=== PATIENT | female | born 1940 ===

== ENCOUNTER 2023-04-26 04:55 | Inpatient (IN) ==
[2023-04-26] MEDS ORDERED: ACETAMINOPHEN 325 MG TAB PO PRN (10:44)
[2023-04-26] MEDS ORDERED: MoRPHine SULFATE 2 MG/ML CARP IV PRN (10:44)
[2023-04-26] MEDS ORDERED: ONDANSETRON INJ 2 MG/ML 2 ML VIAL IV PRN ×2 (10:44→14:02)
[2023-04-26] MEDS ORDERED: MoRPHine SULFATE 4 MG/ML 1 ML CARP\\VIAL IV PRN (10:44)
--- NOTE | 2023-04-26 10:44 | History & Physical Report ---
Date of Service April 26, 2023 Assessment & Plan (1) Renal stone: Plan: 83yo female presenting from outside facility for right sided obstructing renal stone. Patient presently comfortable, no pain or nausea reported. Lab results from outside facility significant for bacteriuria -Admit to medical -Check BMP, CBC, UA -IVF with NSS at 80mL/hr x 1 liter -Morphine PRN pain -Zofran PRN nausea -Ceftriaxone 2gm IV daily -Urology consultation appreciated. Will keep patient NPO for possible intervention (2) Diabetes: Plan: Elevated blood sugar at outside facility. Patient is compliant with her med ications - she is on Levemir, Novolog and Victoza -Check BMP -Lantus 8u BID -Novolog sliding scale - goal blood sugars 110 - 140 -Continue Victoza (3) Hypothyroid: Plan: Patient compliant with her thyroid medications. -Check TSH -Continue Synthroid 50 mcg po daily (4) Hyperlipidemia: Plan: Chronic. Stable -Continue Atorvastatin 20mg po qHS (5) Hypertension: Plan: Blood pressure elevated -Treatment of pain as above -Continue Enalapril 20mg po qHS - to start this evening - awaiting BMP results to assess renal function -Continue to monitor F/E/N - NSS at 80mL/hr x 1 liter, BMP pending, NPO for now PPx - Low risk for DVT Code - Full per discussion with patient Dispo - Admit to medical Admission and Anticipated Discharge Date Admission Date: April 26, 2023 History of Present Illness Chief Complaint: Right flank pain Primary Care Provider: NO PCP Aleida Neal is a pleasant 83yo female with history of HTN, HLP, DM, Hypothyroidism presenting with right flank pain. Patient had an episode of right flank pain earlier in the week that was self limiting. Last night (04/25/23), however, she developed severe right flank pain, 10/10 with radiation into the RLQ and groin. She had associated nausea and non-bloody/non-bilious vomiting. Also endorses some dysuria and increased urinary frequency - somewhat chronic due to history of cystocele. She presented to [facility] with this complaint. At that facility she had a CT of the abdomen which revealed a 15 x 14 x 10mm resulting in moderate right hydronephrosis. She was treated with Toradol, Morphine, Dilaudid and NSS at transferred to [facility] for Urology evaluation. Patient presently comfortable with no report of pain or nausea. No additional complaints - specifically denies fever, chills, cough, SOB, chest pain, abdominal pain, diarrhea. She last took her ASA on 04/25/23 AM. Last meal was 04/26/23 at 18:00. No prior history of renal stones. Allergies Allergy/AdvReac Type Severity Reaction Status Date / Time RAVEN Inhibitors AdvReac Intermediate Verified 04/26/23 11:20 losartan AdvReac Intermediate Verified 04/26/23 11:20 metformin AdvReac Intermediate Verified 04/26/23 11:20 Home Medications Medication Instructions Recorded Confirmed Type aspirin 81 mg PO DAILY 04/26/23 04/26/23 History atorvastatin 20 mg tablet 20 mg PO HS 04/26/23 04/26/23 History enalapril maleate 20 mg tablet 20 mg PO HS 04/26/23 04/26/23 History insulin aspart U-100 100 unit/mL unit subcut BID 04/26/23 History (3 mL) subcutaneous pen (Novolog FlexPen U-100 Insulin aspart) insulin detemir U-100 100 unit/mL 12 unit subcut BID 04/26/23 04/26/23 History (3 mL) subcutaneous pen levothyroxine 50 mcg tablet 50 mcg PO DAILY 04/26/23 04/26/23 History liraglutide 0.6 mg/0.1 mL (18 mg/3 1.8 mg subcut DAILY 04/26/23 04/26/23 History mL) subcutaneous pen injector (Victoza 3-Shad) Past Med/Surg History Medical History (Updated 04/26/23 @ 11:26 by Tracee Dawn DO) Abdominal hernia Diabetes Female cystocele awaiting pessary Hyperlipidemia Hypertension Hypothyroid Surgical History (Updated 04/26/23 @ 11:23 by Tracee Dawn DO) History of appendectomy History of bilateral knee arthroplasty History of cataract History of cholecystectomy History of colonoscopy History of exploratory laparotomy History of tonsillectomy Family History (Updated 04/26/23 @ 11:23 by Tracee Dawn DO) Other Cancer Diabetes Hypertension Stroke Social History (Updated 04/26/23 @ 11:24 by Tracee Dawn DO) Smoking Status: Never smoker Second Hand Exposure: No; Do You Dip or Chew Tobacco: No; Hx Alcohol Use: No Hx Substance Use: No Preferred Language: Pashto Communication Ability: Effective Hearing Ability: Normal Quality Supervisor Required: No Beliefs That Will Affect Care: None Current Living Situation: Spouse Feels Safe at Home: Yes Assistive Devices: Denture - Upper, Glasses and Hearing Aid - Bilateral Review of Systems Review of Systems: All systems reviewed & are unremarkable except as noted in HPI & below Physical Exam Physical Exam: General: patient resting comfortably, NAD, non-toxic in appearance, AA&O x 4 Skin: warm, dry, intact, no rashes or lesions HEENT: NC/AT, PERRL, EOMI, anicteric sclera, conjunctiva without injection, external ear normal to inspection and nontender, nares patent, moist mucus membranes, dentition intact, no oropharyngeal lesions, neck supple, trachea midline, no LAD, no thyromegaly, no JVD Heart: +S1/S2, regular, no m/r/g Lungs: equal air entry bilaterally, no rales/rhonchi/wheezes Abd: +BS, soft, NT/ND, no masses/organomegaly/ascites Ext: warm, 2+ pulses in UE/LE bilaterally, no clubbing/cyanosis or edema Neuro: nonfocal, patient AA&O x 4, speech intact, no facial droop, moving all extremities on command with equal strength 5/5 Results & Data Results & Data Vital Signs (Past 12 Hours) Vital Signs Height Weight Body Mass Index Blood Pressure Blood Pressure Position Temperature Temperature Source 5 ft 4 in 79.5 kg 30.0 174/77 H Semi-fowlers 36.8 C Oral 04/26/23 10:00 04/26/23 10:04/26/23 10:00 04/26/23 10:00 04/26/23 10:04/26/23 10:00 04/26/23 10:00 Pulse Rate Respiratory Rate Pulse Oximetry 93 H 16 98 04/26/23 10:04/26/23 10:04/26/23 10:00 Laboratory Results Lab results from [facility]: WBC=4.94 BUN=22.2 Cr=1.1 Xnwllpk=920 Covid - NEGATIVE UA - orange, turbid, 500 glucose, 3+ blood, large LE, +bacteria Diagnostic Findings CT Abdomen and Pelvis - from [facility] -A radio-opaque calculus is noted at the right renal pelvis measuring 15 x 14 x 10mm resulting in moderate right hydronephrosis. A peripheral fat density is noted at the mid pole of the right kidney, which could be suggestive of focal scarring or angiomyolipoma. Bilateral perinephric fat stranding is age-related. The ureters are normal with no stones. Small hiatal hernia. Small fat- containing umbilical hernia PG Care Time/CCT Total # of Minutes Spent Total Time Spent with Patient: Total time spent is greater than 50% in coordination of care (as documented) at patient's floor/unit and/or counseling patient: Coding Level of Care Code 60784 INT INP/OBS CARE 2/55MIN Diagnoses Renal stone N20.0 Diabetes E11.9 Hypothyroid E03.9 Hyperlipidemia E78.5 Hypertension I10
[2023-04-26] MEDS ORDERED: LACTATED RINGER'S 1,000 ML IV SCH (10:45)
[2023-04-26] MEDS ORDERED: DEXTROSE 50% 50 ML SYRINGE IV PRN (11:13)
[2023-04-26] MEDS ORDERED: GLUCOSE 40% GEL 15 GM TUBE PO PRN (11:13)
[2023-04-26] MEDS ORDERED: GLUCOSE 10 TAB/TUBE PO PRN (11:13)
[2023-04-26] MEDS ORDERED: GLUCAGON FOR INJ 1 MG VIAL SQ PRN (11:13)
[2023-04-26] MEDS ORDERED: CARBOHYDRATES FOR HYPOGLYCEMIA PO PRN (11:13)
[2023-04-26] MEDS ORDERED: SODIUM CHLORIDE 0.9% 1000ML 1,000 ML IV SCH (11:15)
[2023-04-26 11:24] LABS: Basophils # (auto) 0.02 K/uL (0-0.2); Basophils % (auto) 0.3 %; Hematocrit (blood only) 34.2 % (37.0-47.0); Immature Granulocytes # (auto) 0.02 K/uL (0.01-0.20); Immature Granulocytes % (auto) 0.3 %; Lymphocytes # (auto) 0.53 K/uL (1.2-3.4); Lymphocytes % (auto) 7.2 %; Mean Corpuscular Hemoglobin 26.8 pg (25.0-34.0); Mean Corpuscular Hgb Conc 32.2 g/dL (32.0-36.0); Mean Corpuscular Volume 83.2 fL (80.0-100.0); Mean Platelet Volume 9.6 fL (9.4-12.4); Monocytes # (auto) 0.42 K/uL (0.11-0.59); Monocytes % (auto) 5.7 %; Neutrophils # (auto) 6.42 K/uL (1.40-6.50); Neutrophils % (auto) 86.5 %; Platelet Count 156 K/uL (130-400); RDW Coefficient of Variation 14.6 % (11.5-14.5); RDW Standard Deviation 43.8 fL (36.4-46.3); Red Blood Count 4.11 M/uL (4.20-5.40); White Blood Count 7.41 K/ul (4.8-10.8)
[2023-04-26 11:40] LABS: Albumin Level 3.7 gm/dl (3.4-5.0); Bilirubin Direct 0.2 mg/dl (0-0.2); Bilirubin,Total 0.5 mg/dl (0.2-1.0); Calcium 9.2 mg/dl (8.6-10.3); Creatinine Clr Calc Pharmacy 37.8 ml/min; Potassium 5.1 mmol/L (3.5-5.1); Total Protein 6.8 gm/dl (6.0-8.3)
--- NOTE | 2023-04-26 11:52 | Urology Consultation ---
Date of Consultation April 26, 2023 Assessment & Plan (1) Calculus of proximal right ureter: (2) Hydronephrosis: Plan 83-year-old female transferred from [facility] for evaluation of an obstructing right ureteral stone. She is afebrile and nontoxic at present. Labs showcreatinine 1.15, WBC 7.41, hemoglobin 11.0. Per admitting notes, UA at [facility] showed bacteriuria. She has been ordered Rocephin empirically. Recommend continue broad-spectrum antibiotics and narrow per sensitivity data when available. CT A/P independently reviewed and notable for a large obstructing right ureteral stone with moderate hydronephrosis. We discussed recommendation for right ureteral stent placement given obstructing stone and possible urinary tract infection. Ureteral stents were discussed in detail. Discussed need to treat stone at a later date after acute infection has been treated. Patient and spouse are agreeable with the plan, all questions answered. - Proceed with cystoscopy, retrograde pyelogram and right ureteral stent placement. - Risk and benefits of procedure to be reviewed with patient by Dr. Tamayo. - Will be covered with IV Rocephin preoperatively. - Continue supportive care, antibiotics and medical management per hospital medicine service. - Keep NPO for procedure. Supervising Physician Co-Signing Physician Notes Large right obstructing ureteral calculus unlikely to pass spontaneously. We will proceed OR for cystoscopy, right retrograde pyelogram and right ureteral stent placement History of Present Illness Attending Physician: Tracee Dawn DO History of Present Illness 83-year-old female with PMHx of hypothyroidism, hyperlipidemia, diabetes, and hypertension admitted for evaluation of a right-sided obstructing ureteral stone. Patient initially presented to the emergency department at [facility] with severe right flank pain and a CT scan was performed. CT showed a large obstructing right proximal ureteral calculus. Urinalysis at showed bacteriuria per admitting notes. She was transferred to [facility] for urology evaluation. On arrival, she was afebrile and hemodynamically stable. Labs reviewed and show creatinine 1.15, WBC 7.41, and Hgb 11.0. CT imaging from outside facility independently reviewed and showed a large obstructing stone in the right proximal ureter measuring approximately 15 x 14 x 10mm, resulting in moderate right hydronephrosis. She was treated with Toradol, Morphine, Dilaudid and NSS at outside facility. Patient seen and examined at bedside this afternoon. She is awake, alert and resting in bed. Denies flank or abdominal pain at present. She is voiding spontaneously, dysuria resolved. No hematuria. No nausea, vomiting, fever or chills. No prior stone history or stone intervention. Reports cystocele and history of UTIs. Last ate at 6 pm on 04/25/23. Allergies Allergy/AdvReac Type Severity Reaction Status Date / Time RAVEN Inhibitors AdvReac Intermediate Verified 04/26/23 11:20 losartan AdvReac Intermediate Verified 04/26/23 11:20 metformin AdvReac Intermediate Verified 04/26/23 11:20 Home Medications Medication Instructions Recorded Confirmed Type aspirin 81 mg PO DAILY 04/26/23 04/26/23 History atorvastatin 20 mg tablet 20 mg PO HS 04/26/23 04/26/23 History enalapril maleate 20 mg tablet 20 mg PO HS 04/26/23 04/26/23 History insulin aspart U-100 100 unit/mL unit subcut BID 04/26/23 History (3 mL) subcutaneous pen (Novolog FlexPen U-100 Insulin aspart) insulin detemir U-100 100 unit/mL 12 unit subcut BID 04/26/23 04/26/23 History (3 mL) subcutaneous pen levothyroxine 50 mcg tablet 50 mcg PO DAILY 04/26/23 04/26/23 History liraglutide 0.6 mg/0.1 mL (18 mg/3 1.8 mg subcut DAILY 04/26/23 04/26/23 History mL) subcutaneous pen injector (Victoza 3-Shad) Patient History Medical History Abdominal hernia Diabetes Female cystocele awaiting pessary Hyperlipidemia Hypertension Hypothyroid Surgical History History of appendectomy History of bilateral knee arthroplasty History of cataract History of cholecystectomy History of colonoscopy History of exploratory laparotomy History of tonsillectomy Family History Other Cancer Diabetes Hypertension Stroke Social History Smoking Status: Never smoker Second Hand Exposure: No; Do You Dip or Chew Tobacco: No; Tobacco Cessation Education Requested by Patient: No Hx Alcohol Use: No Hx Substance Use: No Preferred Language: Citizen Of [place] Communication Ability: Effective Hearing Ability: Normal Inspector Process Required: No Beliefs That Will Affect Care: None Current Living Situation: Spouse Other Information That Helps Us Care for You: No Feels Safe at Home: Yes Safety Concerns: Feels Safe At This Time Assistive Devices: Denture - Upper, Glasses and Hearing Aid - Bilateral Assistive Devices Comment: Hearing Aids Bilateral not present with patient. Review of Systems Review of Systems: All systems reviewed & are unremarkable except as noted in HPI & below Physical Exam Constitutional: well developed and well nourished; no acute distress and not ill appearing Eyes: no scleral abnormality Neck: normal visual inspection Respiratory: normal respiratory effort and able to speak in complete sentences; no respiratory distress and no labored breathing Cardiovascular: Extremities: no pedal edema Gastrointestinal (Abdomen): Inspection/Auscultation: abdomen normal to inspection; abdomen not distended Percussion/Palpation: abdomen soft; abdomen nontender Musculoskeletal: Head/Neck/Chest: normocephalic Skin: no visible rashes Neurologic: moves all extremities and awake Psychiatric: Orientation: alert, oriented x 3 and cooperative Genitourinary: no CVA tenderness Results & Data Vital Signs (Past 12 Hours) Vital Signs Temp Pulse Resp BP Pulse Ox O2 Del Method 04/26/23 10:00 36.8 C 93 H 16 174/77 H 98 Room Air PG Care Time/CCT Total # of Minutes Spent Total Time Spent with Patient: Total time spent is greater than 50% in coordination of care (as documented) at patient's floor/unit and/or counseling patient: Coding Level of Care Code 61254 INT INP/OBS CARE 2/55MIN Diagnoses Calculus of proximal right ureter N20.1 Hydronephrosis N13.30 Time Spent (min) 60
[2023-04-26] MEDS ORDERED: cefTRIAXone SODIUM 2,000 MG in DEXTROSE 5% 50 ML IV STA (12:00)
[2023-04-26] MEDS: Patient's ALLERGY Info needs ENTERED SCH ×3 (12:33→13:40)
[2023-04-26] MEDS ORDERED: fentaNYL citrate PF 100 MCG/2 ML VIAL ONE (12:46)
[2023-04-26] MEDS ORDERED: LIDOCAINE 2% 2 ML VIAL/AMP(20MG/ML) INFIL ONE (12:46)
[2023-04-26] MEDS ORDERED: PROPOFOL IV EMULSION 10 MG/ML 20 ML VIAL IV ONE ×4 (12:46→14:16)
[2023-04-26] MEDS ORDERED: MIDAZOLAM HCL 1 MG/ML 2ML VIAL ONE (12:46)
[2023-04-26] MEDS: INSULIN ASPART PER UNIT CHARGE SC SCH ×3 (13:15→21:21)
[2023-04-26] MEDS ORDERED: METOPROLOL TARTRATE 1 MG/ML VIAL IV ONE (13:28)
[2023-04-26 13:49] LABS: Appearance Urine Turbid (Clear); Bacteria Urine Automated 3+ (Negative); Bilirubin Urine Negative (Negative); Blood Urine 3+ (Negative); Color Urine Yellow; Epithelial Cell Urine Auto >30 /lpf (0-5); Glucose Urine UA 2+ (Negative); Ketones Urine Trace (Negative); Leukocyte Esterase Urine 2+ (Negative); Nitrite Urine Negative (Negative); RBC Urine Automated >30 /hpf (0-4); Specific Gravity Urine 1.018 (1.000-1.030); Urobilinogen Urine Negative (Negative); WBC Urine Automated >30 /hpf (0-5); pH Urine 7.5 (4.5-7.5)
[2023-04-26] MEDS ORDERED: fentaNYL citrate PF 100 MCG/2 ML VIAL IV PRN (14:02)
[2023-04-26] MEDS ORDERED: LABETALOL HCL IV 5 MG/ML 20ML IV PRN (14:02)
[2023-04-26] MEDS ORDERED: PROMETHAZINE HCL 12.5 MG in SODIUM CHLORIDE 0.9% 50 ML IV PRN (14:02)
[2023-04-26] MEDS ORDERED: FLUMAZENIL 0.1 MG/1 ML 10 ML VIAL IV PRN (14:02)
[2023-04-26] MEDS ORDERED: ATROPINE SULFATE 0.1 MG/ML 10ML SYR IV PRN (14:02)
[2023-04-26] MEDS ORDERED: NALOXONE HCL 0.4 MG/1 ML VIAL/CARP IV PRN (14:02)
[2023-04-26] MEDS ORDERED: ePHEDrine sulfate 50 MG/ML AMP IV PRN (14:02)
--- NOTE | 2023-04-26 14:02 | Anesthesiology Consultation ---
Date of Service April 26, 2023 Assessment & Plan Chart Review Chart Review: Acceptable Risk for Surgery and Patient NOT seen in Pre Admission Testing Consults Requested none ASA [id number] Proposed Anesthesia Anesthesia Type: MAC Risk / Benefits Reviewed With: PT / POA / Parent / Guardian, Accepts Plan and Informed Consent Obtained History Surgery Operation Date: 04/26/23 10:20 Proposed Procedures p Cystoscopy, Retrograde Pyelogram, Right Ureteral Stent Placement - Noam Tamayo MD Height/Weight Height: 5 ft 4 in Weight: 79.5 kg Allergies Allergy/AdvReac Type Severity Reaction Status Date / Time RAVEN Inhibitors AdvReac Intermediate Verified 04/26/23 11:20 losartan AdvReac Intermediate Verified 04/26/23 11:20 metformin AdvReac Intermediate Verified 04/26/23 11:20 Medications Home Medications Medication Instructions Recorded Confirmed Last Taken aspirin 81 mg PO DAILY 04/26/23 04/26/23 Unknown atorvastatin 20 mg tablet 20 mg PO HS 04/26/23 04/26/23 Unknown enalapril maleate 20 mg tablet 20 mg PO HS 04/26/23 04/26/23 Unknown insulin aspart U-100 100 unit/mL unit subcut BID 04/26/23 Unknown (3 mL) subcutaneous pen (Novolog FlexPen U-100 Insulin aspart) insulin detemir U-100 100 unit/mL 12 unit subcut BID 04/26/23 04/26/23 Unknown (3 mL) subcutaneous pen levothyroxine 50 mcg tablet 50 mcg PO DAILY 04/26/23 04/26/23 Unknown liraglutide 0.6 mg/0.1 mL (18 mg/3 1.8 mg subcut DAILY 04/26/23 04/26/23 Unknown mL) subcutaneous pen injector (Victoza 3-Shad) Active Medications Generic Name Dose Route Start Last Admin Trade Name Freq PRN Reason Stop Dose Admin Sodium Chloride 1,000 mls @ 80 mls/hr 04/26/23 11:15 04/26/23 12:35 Nss 1000ml IV 04/26/23 23:44 80 mls/hr .[id number] CECIL Administration Insulin Aspart 0 units 04/26/23 11:30 04/26/23 13:15 Insulin Aspart Per Unit Charge SC 05/26/23 11:29 2 units ACHS CECIL Administration NPO Date Last Intake of Fluids: 04/25/23 Time Last Intake of Fluids: 20:30 Date Last Intake of Solids: 04/25/23 Time Last Intake of Solids: 18:00 Past Medical History Medical History Abdominal hernia Diabetes Female cystocele awaiting pessary Hyperlipidemia Hypertension Hypothyroid obese hyperkalemia right hydronephrosis diabetic peripheral neuropathy Exercise / Class Metabolic Activity III < 4 Walking/Shop/Light housework Past Family History Family History Other Cancer Diabetes Hypertension Stroke Past Surgical History Surgical History History of appendectomy History of bilateral knee arthroplasty History of cataract History of cholecystectomy History of colonoscopy History of exploratory laparotomy History of tonsillectomy Past Anesthesia History No Hx of Anesthesia Complications and No Family Hx of Anesthesia Complications History of PONV No Hx of PONV and No Hx of Motion Sickness Social History Smoking Status: Never smoker Do You Dip or Chew Tobacco: No Hx Alcohol Use: No Hx Substance Use: No Physical Exam Vital Signs Last Vital Signs Temp 37.5 C 04/26/23 13:28 Pulse 91 H 04/26/23 13:28 Resp 20 04/26/23 13:28 BP 115/46 L 04/26/23 13:28 Pulse Ox 96 04/26/23 13:28 O2 Del Method Room Air 04/26/23 13:28 Constitutional + obese; no acute distress ENMT Mouth: + dentition abnormality, + dental caries, + poor dentition and + loose teeth Thyromental Distance: < 3.5 Finger Breadths Mallampati Class: II Neck normal visual inspection and trachea midline; neck extension not limited Respiratory normal respiratory effort Auscultation: + diminished lung sounds Cardiovascular Rate/Rhythm: regular rate and regular rhythm Heart Sounds: no murmur Vessels: no carotid bruit Musculoskeletal Spine: normal cervical ROM and no pain with cervical ROM Extremities: full ROM of extremities Neurologic moves all extremities Motor/Sensory: + sensory deficit (Diabetic Peripheral Neuropathy-decreased sensation to fingers and toes) Psychiatric Orientation: alert and oriented x 3 Testing Laboratory Results 04/26/23 11:08 04/26/23 11:08 04/26/23 04/26/23 13:35 12:02 POC Glucose 200 H 204 H Electrocardiogram Date: 04/26/23 Findings: + KRISHNAR @ (@ 90)
[2023-04-26 14:03] LABS: Protein Urine 1+ (Negative)
--- NOTE | 2023-04-26 14:31 | Post Operative Brief Note ---
PG Immediate Post Op with CF Date of Surgery April 26, 2023 Pre & Post Diagnosis Right ureteral calculus Operation Date: 04/26/23 10:20 <No data on this case meets the specified criteria> Right ureteral calculus I identified the patient and participated in the time-out.: Yes Procedure Cystoscopy, right retrograde pyelogram with radiographic interpretation, right ureteral stent placement Operation Date: 04/26/23 10:20 <No data on this case meets the specified criteria> Surgeon Noam Tamayo MD Optical Goods Worker None Estimated Blood Loss 0 Findings See Below Moderate right hydronephrosis. Stent in appropriate position. Grade 3 pelvic organ prolapse. Anesthesia Type MAC Complications none
--- NOTE | 2023-04-26 14:36 | Operative Report ---
PG Post Operative Report Pre & Post Diagnosis Right ureteral calculus Operation Date: 04/26/23 10:20 <No data on this case meets the specified criteria> Right ureteral calculus I identified the patient and participated in the time-out.: Yes Procedure Cystoscopy, right retrograde pyelogram with radiographic interpretation, right ureteral stent placement Operation Date: 04/26/23 10:20 <No data on this case meets the specified criteria> Surgeon Noam Tamayo MD Nursery Attendant None Estimated Blood Loss 0 Findings See Below Mild right hydronephrosis. Stent in appropriate position. Grade 3 pelvic organ prolapse. Specimens None Drains 6 [place] Korean by 24 cm right ureteral stent Anesthesia Type MAC Complications none Indications 83-year-old female with a large obstructing right ureteral calculus who was transferred from an outside hospital. Options discussed and patient would like to move forward with stent placement. Description of Procedure After informed consent was obtained, the patient was transported operative suite. MAC anesthesia was induced. The patient was placed in dorsolithotomy position prepped and draped in a sterile fashion. They received preoperative ceftriaxone for antibiotic prophylaxis. An appropriate surgical timeout was performed. A 22 [place] rigid scope was inserted per urethra into the bladder. Patient had grade 3 pelvic organ prolapse. Márquez cystoscopy revealed no stones or lesions. I turned my attention the right ureteral orifice and intubated this with a 5 [place] open-ended catheter. A right retrograde pyelogram was shot which showed mild hydronephrosis. A sensor wire was advanced into the kidney and confirmed fluoroscopically. A 6 [place] by 24 cm right ureteral stent was deployed with a good proximal coil in the renal pelvis and a good distal coil noted in the bladder, confirmed fluoroscopically and under direct visualization, respectively. The bladder was emptied and the scope was removed. This concluded the end of the case. All counts were correct at the end of the case. I was present, scrubbed, and actively participated for the entirety of the procedure. I attest to the content of the Intraoperative Record and any orders documented therein. Any exceptions are noted below.
[2023-04-26] MEDS ORDERED: DIATRIZOATE MEGLUMINE 30% 100ML VIAL INSTIL ONE (14:43)
--- NOTE | 2023-04-26 14:52 | Fluoroscopy Report ---
FL retrograde includes kub CLINICAL HISTORY: RIGHT STENTright ureteral stent is present COMPARISON STUDY: CT of same day FLUOROSCOPY TIME: 5 seconds FLUOROSCOPY IMAGES: 2 EXPOSURE DOSE: 1.12 mGy FINDINGS: Retrograde injection of contrast into the right ureter demonstrates mild hydronephrosis. A filling defect is noted within the ureteropelvic junction. Sagittal images demonstrate placement of a right ureteral stent, proximal portion in satisfactory positioning. The distal portion of the stent was not imaged. Cholecystectomy. IMPRESSION: Fluoroscopic assistance as above. ACT 112: Negative or not required by law. Electronically signed by: Zeb Hoskins M.D. 04/26/2023 2:50 PM
--- NOTE | 2023-04-26 14:55 | Anesthesiology Progress Note ---
Date of Service April 26, 2023 Anesthesia Post Procedure Vital Signs Vital Signs: Temp Pulse Pulse Resp BP Pulse Ox O2 Del Method 04/26/23 14:45 84 17 118/62 100 Oxymask 04/26/23 14:38 37.1 C 87 17 106/61 99 Oxymask 04/26/23 13:28 37.5 C 91 H 20 115/46 L 96 Room Air 04/26/23 10:00 36.8 C 93 H 16 174/77 H 98 Room Air O2 Flow Rate 04/26/23 14:45 6 04/26/23 14:38 6 04/26/23 13:28 04/26/23 10:00 Pain Intensity Right Flank: Pain Intensity: 1 Transfer of Care Handoff Completed per policy Notes Mental Status: alert / awake / arousable Patient Amnestic to Procedure: Yes Nausea / Vomiting: adequately controlled Pain: adequately controlled Airway Patency, RR, SpO2: stable & adequate BP & HR: stable & adequate Hydration State: stable & adequate Anesthetic Complications: no major complications apparent
--- NOTE | 2023-04-26 15:45 | Electrocardiogram Report ---
Test Reason : Blood Pressure : / mmHG Vent. Rate : 090 BPM Atrial Rate : 090 BPM P-R Int : 200 ms QRS Dur : 082 ms QT Int : 382 ms P-R-T Axes : 039 -07 025 degrees QTc Int : 467 ms Normal sinus rhythm Cannot rule out Inferior infarct , age undetermined Poor R wave progression, consider anterior CO vs. lead placement vs. LVH Abnormal ECG No previous ECGs available Confirmed by Brian Barahona ([id number]) on 04/26/2023 3:45:31 PM Referred By: Tracee Dawn Confirmed By:Brian Barahona
[2023-04-26] MEDS ORDERED: PHENAZOPYRIDINE HCL 200 MG TAB PO PRN (19:52)
[2023-04-26] MEDS ORDERED: ATORVASTATIN 20 MG TAB PO SCH (21:00)
[2023-04-26] MEDS ORDERED: ENALAPRIL MALEATE 10 MG TAB PO SCH (21:00)
[2023-04-26] MEDS: LANTUS PER UNIT CHARGE SQ SCH (21:21)
[2023-04-27] MEDS ORDERED: cefTRIAXone SODIUM 1,000 MG in DEXTROSE 5% AD-VAN 50 ML IV SCH (09:00)
[2023-04-27] MEDS ORDERED: LEVOTHYROXINE SODIUM 50 MCG TABLET PO SCH (09:00)
[2023-04-27] MEDS ORDERED: ASPIRIN 81 MG ECTAB PO SCH (09:00)
--- NOTE | 2023-04-27 09:31 | Urology Progress Note ---
Date of Service April 27, 2023 Assessment & Plan (1) Hydronephrosis: (2) Calculus of proximal right ureter: Plan 83-year-old female with a right proximal ureteral calculus who status post right ureteral stent placement on 04/26/2023. Patient doing well this morning Stable for discharge home from urologic perspective Urology sent a message to schedule follow-up in clinic to discuss stone treatment Admission and Anticipated Discharge Date Admission Date: April 26, 2023 Subjective 83-year-old female who is status post cystoscopy with right ureteral stent placement on 04/26/2023. She is afebrile with stable vitals. Labs have yet to result this morning. Patient doing well today. Does report some minor stent bother. Patient feels as if she can go home today. Review of Systems Review of Systems: 14 point review of systems negative outside of what is listed above in HPI Physical Exam Physical Exam: General: Alert and oriented, no acute distress HEENT: Normocephalic, mucous membranes moist Pulmonary: Nonlabored respirations Abdomen: Nondistended Extremities: Moves all 4 spontaneously Neuro: No gross deficits Skin: Warm, dry, no rashes noted Results & Data Vital Signs (Past 12 Hours) Vital Signs Temp Pulse Resp BP Pulse Ox O2 Del Method 04/27/23 07:15 Room Air 04/27/23 07:12 37.3 C 75 16 111/56 L 98 Room Air 04/27/23 03:30 36.8 C 85 18 105/63 96 Room Air PG Care Time/CCT Total # of Minutes Spent Total Time Spent with Patient: Total time spent is greater than 50% in coordination of care (as documented) at patient's floor/unit and/or counseling patient: Coding Level of Care Code 50021 SUB INP/OBS CARE 2/35MIN Diagnoses Hydronephrosis N13.30 Calculus of proximal right ureter N20.1
[2023-04-27] MEDS: LANTUS PER UNIT CHARGE SQ SCH (09:40)
[2023-04-27] MEDS: INSULIN ASPART PER UNIT CHARGE SC SCH ×2 (09:40→13:56)
[2023-04-27 11:22] LABS: Basophils # (auto) 0.01 K/uL (0-0.2); Basophils % (auto) 0.2 %; Eosinophils # (auto) 0.01 K/uL (0-0.50); Eosinophils % (auto) 0.2 %; Hematocrit (blood only) 30.9 % (37.0-47.0); Hemoglobin 10.1 g/dl (12.0-16.0); Immature Granulocytes # (auto) 0.02 K/uL (0.01-0.20); Immature Granulocytes % (auto) 0.3 %; Lymphocytes # (auto) 0.76 K/uL (1.2-3.4); Lymphocytes % (auto) 13.1 %; Mean Corpuscular Hemoglobin 26.7 pg (25.0-34.0); Mean Corpuscular Hgb Conc 32.7 g/dL (32.0-36.0); Mean Corpuscular Volume 81.7 fL (80.0-100.0); Monocytes # (auto) 0.34 K/uL (0.11-0.59); Monocytes % (auto) 5.8 %; Neutrophils # (auto) 4.68 K/uL (1.40-6.50); Neutrophils % (auto) 80.4 %; Platelet Count 144 K/uL (130-400); RDW Coefficient of Variation 14.7 % (11.5-14.5); RDW Standard Deviation 43.7 fL (36.4-46.3); Red Blood Count 3.78 M/uL (4.20-5.40); White Blood Count 5.82 K/ul (4.8-10.8)
[2023-04-27 11:42] LABS: Calcium 8.8 mg/dl (8.6-10.3); Creatinine Clr Calc Pharmacy 48.3 ml/min; Est GFR (African American) 68.5 ml/min; Est GFR (Non-African American) 59.1 ml/min
--- NOTE | 2023-04-27 15:17 | Discharge Summary ---
Discharge Summary Date of Service April 27, 2023 Notes For Next Care Provider Medication Changes From Visit Cefdinir 300mg po bid x 7 days oxybutynin 5mg po bid prn spasms from stent Admission HPI Per Admitting Provider Aleida Neal is a pleasant 83yo female with history of HTN, HLP, DM, Hypothyroidism presenting with right flank pain. Patient had an episode of right flank pain earlier in the week that was self limiting. Last night (04/25/23), however, she developed severe right flank pain, 10/10 with radiation into the RLQ and groin. She had associated nausea and non-bloody/non-bilious vomiting. Also endorses some dysuria and increased urinary frequency - somewhat chronic due to history of cystocele. She presented to [facility] with this complaint. At that facility she had a CT of the abdomen which revealed a 15 x 14 x 10mm resulting in moderate right hydronephrosis. She was treated with Toradol, Morphine, Dilaudid and NSS at transferred to [facility] for Urology evaluation. Patient presently comfortable with no report of pain or nausea. No additional complaints - specifically denies fever, chills, cough, SOB, chest pain, abdominal pain, diarrhea. She last took her ASA on 04/25/23 AM. Last meal was 04/26/23 at 18:00. No prior history of renal stones. Principal Dx & Hospital Course #1 = Principal Diagnosis (1) Renal stone: 83yo female presenting with right sided obstructing renal stone. With UA suggestive of UTI, fever x 1 while here, no sepsis. Ur cx from [place] with mixed cassidy as per my conversation with Dr. Guy there on 04/27 Ur cx from [place] with pinpoint growth at time of discharge but clinically patient doing very well on ceftraxone Renal function normal -had right ureteral stent urgently placed on 04/26-tolerating well with some spasms with voiding -dc to home on cefdinir 300mg po bid x 7 days -f/u with Urology for stone and stent management in 1 week -add on oxybutynin 5mg po bid prn spasm -Urology consultation appreciated. (2) Diabetes: Elevated blood sugar at outside facility. Patient is compliant with her medications - she is on Levemir, Novolog and Victoza (3) Hypothyroid: Patient compliant with her thyroid medications. TSH here normal -Continue Synthroid 50 mcg po daily (4) Hyperlipidemia: Chronic. Stable -Continue Atorvastatin 20mg po qHS (5) Hypertension: Blood pressure controlled -Continue Enalapril 20mg po qHS Plan Dispo-dc to home Discharge Exam Constitutional WD/WN, vitals as above Respiratory normal respiratory effort, lungs clear to auscultation Cardiovascular RRR, no murmur, no edema Gastrointestinal (Abdomen) normal bowel sounds, soft, nontender, no hepatosplenomegaly Psychiatric A+Ox3, euthymic affect Updated Medication List Medication Instructions Recorded Confirmed Type aspirin 81 mg PO DAILY 04/26/23 04/26/23 History atorvastatin 20 mg tablet 20 mg PO HS 04/26/23 04/26/23 History enalapril maleate 20 mg tablet 20 mg PO HS 04/26/23 04/26/23 History insulin aspart U-100 100 unit/mL unit subcut BID 04/26/23 History (3 mL) subcutaneous pen (Novolog FlexPen U-100 Insulin aspart) insulin detemir U-100 100 unit/mL 12 unit subcut BID 04/26/23 04/26/23 History (3 mL) subcutaneous pen levothyroxine 50 mcg tablet 50 mcg PO DAILY 04/26/23 04/26/23 History liraglutide 0.6 mg/0.1 mL (18 mg/3 1.8 mg subcut DAILY 04/26/23 04/26/23 History mL) subcutaneous pen injector (Victoza 3-Shad) acetaminophen 325 mg tablet 650 mg PO Q4H PRN pain #30 tabs 04/27/23 Rx cefdinir 300 mg capsule 300 mg PO BID #14 caps 04/27/23 Rx oxybutynin chloride 5 mg tablet 5 mg PO BID PRN spasms from stent 04/27/23 Rx #10 tabs Hospital Stay Data Consultations 04/26/23 10:44 Consult Urology Routine 04/26/23 11:04 Radiology Transfer Of Images Routine Procedures Performed Operation Date: 04/26/23 10:20 Actual Procedures p Cystoscopy, Right Retrograde Pyelogram, Right Ureteral Stent Placement - Noam Tamayo MD Diagnostic Imagining Performed 04/26/23 14:00 FL retrograde includes kub Routine Pending Results Patient Have Any Pending Studies at Discharge: Yes (Final urine culture) Discharge Instructions Given to Patient (Per Discharging Provider) Please continue taking the antibiotic called cefdinir for 7 more days for the urine infection. You can take the oxybutynin as needed for the pain from spasms around the stent. It can be normal to have some blood in the urine after a stent placement. If you have fevers or worsening pain, please call the Urology office right away. Total Time Total Time Spent Total Time Spent (In Minutes): 35 min Coding Level of Care Code 97791 INP/OBS DISCH >30 MIN Diagnoses Renal stone N20.0 Diabetes E11.9 Hypothyroid E03.9 Hyperlipidemia E78.5 Hypertension I10
== END 2023-04-27 15:48 | disposition home or self-care (01) | DRG 661 ==
LOC: SUATTDRO 10:02 → 3N 10:02